=== PATIENT | male | born 1995 | race Caucasian/White ===

== ENCOUNTER 2017-09-08 14:06 | Emergency (ER) | payer OTHER ==
--- NOTE | 2017-09-08 14:08 | ER Report ---
History and Physical Time Seen By MD: 14:08 HPI/ROS CHIEF COMPLAINT: Collarbone injury HISTORY OF PRESENT ILLNESS: Patient is a 22-year-old male with no contributory past medical history who presents to the emergency department for evaluation of left shoulder pain. Patient was [place] at [facility] [place]. He was coming down a hill got one of his ski tips caught went head over heels landing directly square on his left shoulder. Patient has no head injury no neck pain. Complains of pain over the left clavicle. He denies any other injuries or complaints at this time. Patient denies any numbness or tingling to the hands. Patient reports painful range of motion with abduction at the shoulder at approximately 20 Allergies: Coded Allergies: No Known Drug Allergies (Unverified , 09/08/17) Home Meds Active Scripts Oxycodone Hcl/Acetaminophen (PERCOCET 5-325 MG TABLET) 1 Each Tablet, 1-2 EACH PO Q4-6H Y for PAIN, #30 TAB 0 Refills Prov:ALEXANDRE VINSON MD 09/08/17 Past Medical/Surgical History Noncontributory Constitutional Vital Sign - Last 24 Hours 09/08/17 09/08/17 14:12 14:55 Temp 98.2 Pulse 110 110 Resp 16 B/P (MAP) 149/85 142/99 (113) Pulse Ox 100 O2 Delivery Room Air Room Air Physical Exam General appearance: Alert no distress. Respiratory: Chest is non tender, lungs are clear to auscultation. Cardiac: Regular rate and rhythm Extremities: Patient has swelling to the middle 3rd of the clavicle with point tenderness to palpation. Patient denies any chest pain or shortness of breath. Range of motion is limited to only partly 15-20 of abduction at the left shoulder.Examination of the Left hand reveals no acute deformity. The patient is able to give a thumbs up sign, is able to make an okay sign, and is able to AB duct the fingers. Sensation is intact over the dorsal 1st web space, the volar aspect of the 2nd finger, and the volar aspect of the 5th finger. Capillary refill is brisk. There is no tenderness to the humerus on the left side. Medical Decision Making EKG/Imaging Imaging middle 1 fracture to left clavicle with 200% displacement ED Course/Re-evaluation ED Course 09/08/2017 2:24:37 pm plan at this time will be to administer oral pain medication I will x-ray the left clavicle. 09/08/2017 2:53:[address] Krishnan with regard to this patient made aware of history physical exam findings including left clavicle fracture with approximately 200% displacement in the middle one third of the left clavicle. There is some tenting of the skin but no evidence of any vascular compromise to that area. Patient is neurovascularly intact to the hand of the affected extremity. We'll be to place the patient in a shoulder immobilizer prescribed pain medications and have him follow-up in Dr. Krishnan's clinic on Sunday of this week. Decision to Disposition Date: Sep 08, 2017 Decision to Disposition Time: 14:53 Depart Departure Latest Vital Signs Vital Signs Date Time Temp Pulse Resp B/P (MAP) Pulse Ox O2 Delivery O2 Flow Rate FiO2 09/08/17 14:55 110 142/99 (113) Room Air 09/08/17 14:12 98.2 16 100 Impression: Primary Impression: Clavicle fracture, shaft Condition: Improved Disposition: HOME OR SELF-CARE Referrals: ARETHA KRISHNAN MD Call [facility] on September 10 to schedule follow-up appointment with Dr. Krishnan for September 11 in his clinic. New Scripts Oxycodone Hcl/Acetaminophen (PERCOCET 5-325 MG TABLET) 1 Each Tablet 1-2 EACH PO Q4-6H Y for PAIN, #30 TAB 0 Refills Prov: ALEXANDRE VINSON MD 09/08/17 Patient Instructions: Clavicle Fracture (ED) Additional Instructions: You were provided with contact information for one of the orthopedist in [place]. If you are returning to [place] prior to Sunday, should schedule a follow-up appointment with an orthopedist for reevaluation and further management of your left clavicle fracture. You should call as soon as on SundaySeptember 10 to the orthopedist of your choice schedule follow-up appointment for your left clavicle fracture. You were given a disc of your x- rays so that you can take this to your appointment one scheduled. Be sure to watch for color changes to the skin over lying on the fracture of her left clavicle. If it becomes pale white or has color changes, you should proceed to the nearest emergency department for reevaluation. Wear your shoulder immobilizer until evaluated by orthopedics Problem Qualifiers Primary Impression: Clavicle fracture, shaft Encounter type: initial encounter Fracture type: open Fracture alignment: displaced Laterality: left Qualified Codes: S42.022B - Displaced fracture of shaft of left clavicle, initial encounter for open fracture ALEXANDRE VINSON MD Sep 08, 2017 14:08
[2017-09-08 14:55] VITALS: BP 142/99
[2017-09-08] MEDS ORDERED: OXYC-865 PO (14:59)
--- NOTE | 2017-09-08 15:16 | RADIOLOGY IMAGING REPORT ---
FACILITY: [facility] PATIENT NAME: Cedric Caal : 1995 MR: [id number] V: [id number] EXAM DATE: ORDERING PHYSICIAN: ALEXANDRE VINSON TECHNOLOGIST: Location: [facility] [place] Patient: Cedric Caal : 1995 Visit/Account:[id number] Date of Sevice: 09/08/2017 CLAVICLE LEFT Indication: Left clavicular pain and swelling after ski accident. Comparison: None available Findings: 2 views of the left clavicle. There is a mid clavicular fracture with superior displacement of the pr oximal portion almost 2 bone widths. The AC joint appears intact. No other indication of fracture. No dislocation or bony lesion. Soft tissues are unremarkable. IMPRESSION: Mid left clavicular fracture with superior displacement of the proximal portion. Report Dictated By: Rafy Gamez at 09/08/2017 3:11 PM Report E-Signed By: Rafy Gamez at 09/08/2017 3:13 PM WSN:[id number]
== END 2017-09-08 15:36 | disposition home or self-care (01) ==
LOC: ER 14:21
DX: S42.022B Displaced fracture of shaft of left clavicle, initial encounter for open fracture (principal); W19.XXXA Unspecified fall, initial encounter; Y93.23 Activity, snow (alpine) (downhill) skiing, snowboarding, sledding, tobogganing and snow tubing
CPT/HCPCS: 73000; 99283; L3982